=== PATIENT | female | born 1985 | race Caucasian/White ===

== ENCOUNTER 2018-09-21 19:19 | Emergency (ER) | payer MEDICAID ==
[~2018-09-21] VITALS: Ht 167.6 cm; Wt 59.9 kg
[2018-09-21] MEDS ORDERED: HYDROCODONE/APAP 5-325MG TABLET PO ONE (19:45)
[2018-09-21] MEDS ORDERED: ONDANSETRON ODT 4 MG TAB.RAPDIS SL ONE (19:45)
[2018-09-21] MEDS ORDERED: ONDANSETRON ODT 4 MG TAB.RAPDIS ONE (19:53)
[2018-09-21] MEDS ORDERED: HYDROCODONE/APAP 5-325MG TABLET ONE (19:53)
--- NOTE | 2018-09-21 19:55 | NUR ---
PATIENT OUT OF UNIT FOR CT SCAN WITH NO DISTRESS NOTED.
--- NOTE | 2018-09-21 20:07 | NUR ---
PATIENT BACK FROM CT SCAN WITH NO DISTRESS NOTED
--- NOTE | 2018-09-21 20:48 | NUR ---
Patient discharged to home in stable conditon. Written and verbal after care instructions given. Patient verbalizes understanding of instructions. WALKED OUT OF ER WITH NO DISTRESS NOTED.
[2018-09-21 20:49] VITALS: BP 127/77
== END 2018-09-21 20:50 | disposition home or self-care (01) ==
LOC: ER 19:19
DX: S13.4XXA Sprain of ligaments of cervical spine, initial encounter (principal); V49.9XXA Car occupant (driver) (passenger) injured in unspecified traffic accident, initial encounter; Y93.89 Activity, other specified; Y92.89 Other specified places as the place of occurrence of the external cause; Y99.8 Other external cause status
CPT/HCPCS: 72125; A4663; Q0162

== ENCOUNTER 2019-06-10 18:03 | Emergency (ER) | payer MEDICAID ==
[~2019-06-10] VITALS: Ht 167.6 cm; Wt 59.9 kg
--- NOTE | 2019-06-10 19:06 | NUR ---
PATIENT WAS MSE BY DR VALENCIA IN ROOM 04A.
--- NOTE | 2019-06-10 19:07 | NUR ---
REPORT GIVEN TO LEONCIO FLORES.
--- NOTE | 2019-06-10 19:23 | NUR ---
CARE ASSUMED. LAB IN ROOM.PT RESTING COMFORTABLY. NO ACUTE DISTRESS NOTED.
[2019-06-10 19:32] LABS: BASOPHILS % (AUTO) 0.2 % (0.0-2.0); EOSINOPHILS # (AUTO) 0.1 K/uL (0.0-0.7); EOSINOPHILS % (AUTO) 0.7 % (0.0-7.0); HEMATOCRIT 43.3 % (31.2-41.9); LYMPHOCYTES # (AUTO) 2.2 K/uL (20.0-40.0); LYMPHOCYTES % (AUTO) 22.8 % (20.5-51.5); MEAN CORPUSCULAR HEMOGLOBIN 31.7 uug (24.7-32.8); MEAN CORPUSCULAR HGB CONC 35 g/dL (32.3-35.6); MEAN CORPUSCULAR VOLUME 91.9 fL (75.5-95.3); MONOCYTES # (AUTO) 0.6 K/uL (2.0-10.0); MONOCYTES % (AUTO) 5.9 % (0.0-11.0); NEUTROPHILS # (AUTO) 6.7 K/uL (1.8-8.9); NEUTROPHILS % (AUTO) 70.4 % (38.5-71.5); PLATELET COUNT (AUTO) 219 K/uL (179-408); RED BLOOD CELL COUNT(AUTO) 4.71 MIL/uL (3.63-4.92); WHITE BLOOD COUNT (AUTO) 9.5 K/uL (3.8-11.8)
[2019-06-10 19:36] LABS: CREATININE 0.8 mg/dL (0.6-1.3); POTASSIUM 4.6 mmol/L (3.5-5.1)
--- NOTE | 2019-06-10 19:49 | NUR ---
INSERTED IV PER MD ORDER. 22G R AC.NO INFILTRATION NOTED. PATENT IV.
[2019-06-10] MEDS ORDERED: IV NS 1000 ML 1,000 ML IV ONE (20:00)
[2019-06-10] MEDS ORDERED: MORPHINE SULFATE 4 MG/1 ML DISP.SYRIN IV ONE (20:00)
[2019-06-10 20:01] LABS: *URINE HCG, QUAL NEGATIVE (NEGATIVE)
[2019-06-10] MEDS ORDERED: MORPHINE SULFATE 4 MG/1 ML DISP.SYRIN ONE (20:03)
[2019-06-10] MEDS ORDERED: SWABABLE VALVE TRANSFER SET EA MC ONE (20:20)
[2019-06-10] MEDS ORDERED: IOHEXOL 300MG/ML 100 ML INFUS..BTL ONE (20:20)
[2019-06-10] MEDS ORDERED: IV NORMAL SALINE 250 ML IV ONE (20:20)
--- NOTE | 2019-06-10 20:34 | NUR ---
PT TAKEN TO CT.
--- NOTE | 2019-06-10 21:05 | NUR ---
PT BACK FROM CT. NO ACUTE DISTRESS NOTED.
--- NOTE | 2019-06-10 21:07 | NUR ---
PT CONNECTED BACK TO MONITORS. V/S STABLE.
--- NOTE | 2019-06-10 21:52 | NUR ---
Patient discharged to home in stable condition.Pt was accompanied by her brother. Written and verbal after care instructions given. Patient verbalizes understanding of instructions. Patient ambulated from ER with stable gait. All belongings went with patient. Patient told to follow up with her dentist.
[2019-06-10 22:14] VITALS: BP 120/72
== END 2019-06-10 21:52 | disposition home or self-care (01) ==
LOC: ER 18:05
DX: K08.89 Other specified disorders of teeth and supporting structures (principal); K01.1 Impacted teeth; R51 Headache
CPT/HCPCS: 36415; 70487; 80048; 84703; 85025; 96374; 99284; J2270; Q9967; A4663; J7030; J7050